=== PATIENT | male | born 1990 | race Caucasian/White ===

== ENCOUNTER 2020-03-08 23:43 | Emergency (ER) | payer BC ==
[~2020-03-08] VITALS: Ht 172.7 cm; Wt 117.5 kg
--- NOTE | 2020-03-08 23:57 | NUR ---
PT CAME TO THE ED C/O RAPID HEART RATE SINCE YESTERDAY AFTERNOON AT AROUND 2 PM. DENIES CHEST PAIN AND SOB. PT AAOX4, RR EVEN AND UNNLABORED ON W NAD NOTED. HR NOTED 117S. PT CONNECTED TO THE LEGAL OPERATIONS MANAGER AND POX
--- NOTE | 2020-03-08 23:59 | NUR ---
URINE COLLECTED AND SENT TO LAB
--- NOTE | 2020-03-08 23:59 | NUR ---
MASTER CHEF AT BEDSIDE FOR LABS.
--- NOTE | 2020-03-08 23:59 | NUR ---
EMT AT BEDSIDE FOR EKG
[2020-03-09] MEDS ORDERED: IV NS 0.9% 1,000 ML BAG IV ONE
[2020-03-09 00:04] LABS: BASOPHILS # (AUTO) 0.1 /CMM (0.0-0.2); EOSINOPHILS % (AUTO) 2.2 % (0.0-6.0); HEMATOCRIT 50 % (39-51); HEMOGLOBIN 16.9 g/dL (13.5-17.5); LYMPHOCYTES # (AUTO) 2.5 /CMM (0.8-4.8); LYMPHOCYTES % (AUTO) 21.9 % (20.0-44.0); MEAN CORPUSCULAR HGB CONC 33 g/dl (31.0-36.0); MEAN CORPUSCULAR VOLUME 91 fL (80-96); MONOCYTES % (AUTO) 8.8 % (2.0-12.0); NEUTROPHILS # (AUTO) 7.5 /CMM (1.8-8.9); NEUTROPHILS % (AUTO) 66.1 % (43.0-81.0); PLATELET COUNT (AUTO) 241 /CMM (150-450); RED BLOOD CELL COUNT(AUTO) 5.53 MIL/uL (4.5-6.0); WHITE BLOOD COUNT (AUTO) 11.4 K/uL (4.3-11.0)
[2020-03-09 00:19] LABS: CALCIUM, SERUM 9.5 mg/dL (8.5-10.1); POTASSIUM 3.9 mmol/L (3.5-5.1)
[2020-03-09 00:25] LABS: ALBUMIN 4.5 g/dL (3.4-5.0); BILIRUBIN,TOTAL 0.2 mg/dL (0.2-1.0); TOTAL PROTEIN, SERUM 8.4 g/dL (6.4-8.2)
--- NOTE | 2020-03-09 01:23 | NUR ---
Patient discharged to home in stable condition. Written and verbal after care instructions given. Patient verbalizes understanding of instruction.IV removed. Catheter intact and site benign. Pressure and 4x4 applied to site. No bleeding noted.
[2020-03-09 01:26] VITALS: BP 131/81
== END 2020-03-09 01:26 | disposition home or self-care (01) ==
LOC: ER 23:47
DX: R00.2 Palpitations (principal)
CPT/HCPCS: 36415; 71045; 80048; 80076; 80305; 80307; 84484; 85025; 93005 ×2; 99285; J7030; G0480